=== PATIENT | male | born 1980 | race African-American/Black ===

== ENCOUNTER 2018-09-04 15:22 | Emergency (ER) | payer OTHER ==
[~2018-09-04] VITALS: Ht 170.2 cm; Wt 62.0 kg
[2018-09-04 15:25] VITALS: Ht 170.2 cm; Wt 62.0 kg
[2018-09-04] MEDS ORDERED: HYDROmorphONE 1 MG/ML SYG IV STA ×2 (18:55→20:13)
[2018-09-04] MEDS ORDERED: ONDANSETRON 4 MG INJ IV STA ×2 (18:55→20:13)
--- NOTE | 2018-09-04 18:59 | ERD ---
ER Documentation Chief Complaint Chief Complaint pt is bib [id number] from [place] c/o pain, hx sickle cell, just DC'd wants scrip HPI This is a 38-year-old male with a known history of sickle cell disease type SC the presents to the emergency department stating that he is experiencing severe pain in his upper and lower extremities. The patient indicates that this pain is similar to his previous sickle cell crisis he is. He denies any hemoptysis no hematemesis no melanotic stools. He denies any trauma to his upper or lower extremities. He states there is no weakness to his upper or lower extremities and he denies a headache. He said no fevers or shaking or chills. He denies any neck pain. The patient was just recently discharged and indicated he also needs a prescription for [place] at home which he takes for analgesic control on a regular basis. Indicates he ran out of his medicine 3 days ago and his pain has progressively worsened since that time. ROS All systems reviewed and are negative except as per history of present illness. Medications Home Meds Active Scripts Hydrocodone/Acetaminophen ([place] 5-325 Tablet) 1 Each Tablet, 1 TAB PO Q6H PRN for PAIN, #20 TAB Prov:YON ART MD 09/04/18 Allergies Allergies: Coded Allergies: Penicillins (Verified Allergy, Unknown, 09/04/18) Sulfa (Sulfonamide Antibiotics) (Verified Allergy, Unknown, 09/04/18) aspirin (Verified Allergy, Unknown, 09/04/18) morphine (Verified Allergy, Unknown, 09/04/18) Physical Exam Vitals Vital Signs Date Temp Pulse Resp B/P (MAP) Pulse Ox O2 O2 Flow FiO2 Time Delivery Rate 09/04/18 98.6 84 18 138/63 98 15:25 (88) Physical Exam Constitutional:Well-developed. Well-nourished. Patient tearful between a significant amount of discomfort secondary to pain HEENT:Normocephalic. Atraumatic.Pupils were equal round reactive to light. Moist mucous membranes.No tonsillar exudates. Neck: No nuchal rigidity. No lymphadenopathy. No posterior cervical spine ten derness or step-offs. Respiratory: Not using accessory muscles of respiration.Lungs were clear to au scultation bilaterally. No rhonchi. No rales. No wheezing. Cardiovascular: Regular rate regular rhythm.No murmurs. No rubs were appreciated.S1, S2 normal. Distal pulses are palpable 2+ bilaterally. GI: Abdomen was soft. Nontender. Non Distended. No pulsatile abdominal masses or bruits. No rebound. No guarding. Bowel sounds were present and normal. Muscle skeletal: Full range of motion of both the upper and lower extremities bilaterally.Normal muscle tone.No assymetrical calf tenderness or swelling. Skin: No petechia, no purpura. No lesions on the palms or the soles of the feet. No maculopapular rash. NEURO: Patient was alert, awake, orientated x3.No facial droop. Gait observed and normal with no ataxia.Speech had regular rate and rhythm. No focal neurological deficits. Result Diagram: 09/04/18192809/04/181928 Results 24 hrs Laboratory Tests Test 09/04/18 19:29 White Blood Count 10.2 10^3/ul Red Blood Count 2.22 10^6/ul Hemoglobin 7.5 g/dl Hematocrit 20.9 % Mean Corpuscular Volume 94.1 fl Mean Corpuscular Hemoglobin 33.8 pg Mean Corpuscular Hemoglobin Concent 35.9 g/dl Red Cell Distribution Width 15.7 % Platelet Count 239 10^3/UL Mean Platelet Volume 10.3 fl Immature Granulocytes % 1.100 % Neutrophils % 63.5 % Lymphocytes % 22.4 % Monocytes % 8.0 % Eosinophils % 4.4 % Basophils % 0.6 % Nucleated Red Blood Cells % 1.0 /100WBC Immature Granulocytes # 0.110 10^3/ul Neutrophils # 6.5 10^3/ul Lymphocytes # 2.3 10^3/ul Monocytes # 0.8 10^3/ul Eosinophils # 0.5 10^3/ul Basophils # 0.1 10^3/ul Nucleated Red Blood Cells # 0.1 10^3/ul Absolute Reticulocyte Count 0.174 X10^6 Percent Reticulocyte Count 7.9 % Prothrombin Time 13.1 Sec Prothrombin Time Ratio 1.0 INR International Normalized Ratio 0.98 Activated Partial Thromboplast Time 40.6 Sec Sodium Level 134 mmol/L Potassium Level 4.2 mmol/L Chloride Level 104 mmol/L Carbon Dioxide Level 24 mmol/L Anion Gap 6 Blood Urea Nitrogen 11 mg/dl Creatinine 0.79 mg/dl Est Glomerular Filtrat Rate mL/min > 60 mL/min Glucose Level 87 mg/dl Calcium Level 9.0 mg/dl Total Bilirubin 1.2 mg/dl Direct Bilirubin 0.00 mg/dl Indirect Bilirubin 1.2 mg/dl Aspartate Amino Transf (AST/SGOT) 79 IU/L Alanine Aminotransferase (ALT/SGPT) 41 IU/L Alkaline Phosphatase 294 IU/L Total Protein 6.4 g/dl Albumin 3.7 g/dl Globulin 2.70 g/dl Albumin/Globulin Ratio 1.37 Current Medications Medications Dose Sig/Yvonne Start Time Status Last (Trade) Ordered Route PRN Stop Time Admin Dose Reason Admin 1 mg ONCE STAT 09/04/18 DC 09/04/18 Hydromorphone IV 18:55 19:23 HCl 09/04/18 18:57 (Dilaudid) Ondansetron 4 mg ONCE STAT 09/04/18 DC 09/04/18 HCl (Zofran IV 18:55 19:23 Inj) 09/04/18 18:57 50 mg ONCE ONCE 09/04/18 DC 09/04/18 Diphenhydrami IV 19:00 19:23 ne HCl 09/04/18 19:01 (Benadryl) 1 mg ONCE STAT 09/04/18 DC 09/04/18 Hydromorphone IV 20:13 20:25 HCl 09/04/18 20:18 (Dilaudid) Ondansetron 4 mg ONCE STAT 09/04/18 DC 09/04/18 HCl (Zofran IV 20:13 20:21 Inj) 09/04/18 20:18 25 mg ONCE ONCE 09/04/18 DC 09/04/18 Diphenhydrami IV 21:00 21:10 ne HCl 09/04/18 21:01 (Benadryl) Procedures/MDM This is a 38-year-old male who presented to the emergency room with a history of sickle cell disease. He appeared to be having a vaso-occlusive crisis. Patient had no evidence of an acute life-threatening etiology such as acute chest syndrome or sepsis. He received intravenous Dilaudid Zofran and Benadryl which he states is the cocktail he usually receives to improve his sickle cell pain. He had no severe electrolyte abnormalities. His pain had improved from 10 out of 10 in intensity to 4 out of 10 in intensity. The patient was anemic with a hemoglobin of 7.5. However the patient no signs of an active upper or lower gas trointestinal bleed and no active bleeding. He states his hemoglobin usually will reside between 7 and 9 and he has not required a blood transfusion in the past The patient was discharged home in fair condition. I reviewed the care system and the patient had not recently had any opiate analgesic medication filled and therefore I did provide a prescription for [place]. The patient was refusing a prescription of Narcan. They were instructed to return to the emergency department at any time if there was any worsening of their condition. The patient stated they would follow up with their PCP in the next 24-48 hours to initiate a suitable medication regimen under the care of their PCP as well as to allow their PCP to monitor any drug reactions. The patient was discharged home with prescriptions after they gave informed consent to the new medication. They were also fully informed by myself on the adverse effects and adverse drug interactions in order to provide adequate safeguards to prevent possible adverse reactions to medications. Departure Diagnosis: Primary Impression: Vasoocclusive sickle cell crisis Additional Impression: Sickle cell anemia Sickle-cell associated disorders: with unspecified crisis Qualified Codes: D57.00 - Hb-SS disease with crisis, unspecified Condition: YON Hills MD Sep 04, 2018 18:59
[2018-09-04] MEDS ORDERED: DIPHENHYDRAMINE 50 MG INJ IV ONE ×2 (19:00→21:00)
[2018-09-04] MEDS ORDERED: HYDR-4011 PO (20:33)
[2018-09-04 21:27] VITALS: BP 118/71; PULSE 88; RESP 16
== END 2018-09-04 21:27 | disposition home or self-care (01) ==
LOC: E/R 15:22
DX: D57.00 Hb-SS disease with crisis, unspecified (principal); R40.2142 Coma scale, eyes open, spontaneous, at arrival to emergency department; R40.2362 Coma scale, best motor response, obeys commands, at arrival to emergency department; R40.2252 Coma scale, best verbal response, oriented, at arrival to emergency department
CPT/HCPCS: 80053; 85025; 85045; 85610; 85730; 96374; 96375; 96376; J1170; J1200; J2405; Z7502